=== PATIENT | female | born 1985 | race Caucasian/White ===

== ENCOUNTER 2018-10-15 21:52 | Emergency (ER) | payer OTHER, SELFPAY ==
[2018-10-15 22:01] VITALS: BP 134/85; PULSE 64; RESP 16; TEMP 37.1; O2SAT 100
--- NOTE | 2018-10-15 22:20 | W.ED.GENAD ---
Discharge Plan Disposition Patient Disposition: HOME Condition: Good Discharge Details Chief Complaint: Orthopedic Clinical Impression: Closed fracture of left thumb Primary Care Provider: Mary,Local ED Provider: Gerard Lyman Meds and New Rx's Prescriptions: Continued naltrexone 50 mg Tablet RF: 0 mirtazapine 15 mg Tablet RF: 0 sertraline 50 mg Tablet RF: 0 Discharge Instructions Additional Instructions: Please use ibuprofen and ice over the next few days to help with pain and swelling. Keep your hand elevated. Leave the splint on to keep the thumb immobilized. Call your primary for follow-up in 2 weeks. Return to ED for any concerns or problems. Referrals: Primary Care Provider [Outside] Medical Decision Making Patient with hematoma to the pad of her thumb. There is no subungual hematoma. There is a prior blister in the webspace at the base of her thumb from raking days ago. She has decreased range of motion because of the swelling. However the strength of the flexor and extensor tendons are intact. Doubt fracture but will obtain x-ray. Per my review there actually does appear to be a fracture line through the base of the distal phalanx. It is not intra-articular. It is not displaced or angulated. Patient is not comfortable in preformed aluminum splints. I felt that a soft thumb spica splint was probably a little bit overboard. She was comfortable in aluminum splint that I was able to manufacture. Patient instructed to use ice and ibuprofen. Leave the splint on until follow-up. Keep hand elevated to help with swelling. Call primary for follow up in two weeks. HPI General Mode of arrival: ambulatory. Date/Time Provider Initiated Documentation: 10/15/18 22:05. Limitations to Documentation: no limitations. Information obtained by: patient. HPI Narrative: Patient is right-hand dominant and presents with left thumb injury. She was pruning a tree with a telescoping lucio. Somehow the director enterprise sales fell and struck her thumb. She is not exactly sure how it all happened. She denies any other injury. She has taken Advil and used ice. Pain continues with swelling so she came in to be sure no fractures. Related Data Home Medications Medication Instructions Recorded Confirmed mirtazapine 10/15/18 naltrexone 10/15/18 sertraline 10/15/18 Allergies Allergy/AdvReac Type Severity Reaction Status Date / Time cefaclor [From [facility]] Allergy Verified 10/15/18 22:19 General Stated Complaint: Orthopedic CORBY: 4 Review of Systems Musculoskeletal Comments: left thumb pain Integumentary/Breasts Reports wounds (previous blister to the base of left thumb from raking) PFSH Social History Alcohol Intake: former Do you feel safe at home: Yes Do you feel safe in your relationship?: Yes Exam Extrem Left upper extremity: wrist Details: normal to inspection and normal ROM; no tenderness and no swelling and hand Details: tendon exam normal, tenderness Location: of the thumb (pad of thumb with hematoma, swelling, tenderness) and ecchymosis Course Vital Signs Temperature 98.8 F 10/15/18 22:01 Pulse 64 10/15/18 22:01 Respiratory Rate 16 10/15/18 22:01 Blood Pressure 134/85 10/15/18 22:01 Pulse Oximetry 100 10/15/18 22:01 Temperature 98.8 F 10/15/18 22:01 Temperature Source Tympanic 10/15/18 22:01 Pulse 64 10/15/18 22:01 Respiratory Rate 16 10/15/18 22:01 Respiratory Effort 10/15/18 22:08 Blood Pressure 134/85 10/15/18 22:01 Blood Pressure Position Sitting 10/15/18 22:01 Pulse Oximetry 100 10/15/18 22:01 Oxygen Delivery Method Room Air 10/15/18 22:01 Oxygen Flow Rate 0 10/15/18 22:01 Pain Level 2 10/15/18 22:01
--- NOTE | 2018-10-15 22:30 | ED.GENADUL_ITS ---
Discharge Plan Disposition Patient Disposition: HOME Condition: Good Discharge Details Chief Complaint: Orthopedic Clinical Impression: Closed fracture of left thumb Primary Care Provider: Mary,Local ED Provider: Gerard Lyman Meds and New Rx's Prescriptions: Continued naltrexone 50 mg Tablet RF: 0 mirtazapine 15 mg Tablet RF: 0 sertraline 50 mg Tablet RF: 0 Discharge Instructions Additional Instructions: Please use ibuprofen and ice over the next few days to help with pain and swelling. Keep your hand elevated. Leave the splint on to keep the thumb immobilized. Call your primary for follow-up in 2 weeks. Return to ED for any concerns or problems. Referrals: Primary Care Provider [Outside] Medical Decision Making Patient with hematoma to the pad of her thumb. There is no subungual hematoma. There is a prior blister in the webspace at the base of her thumb from raking days ago. She has decreased range of motion because of the swelling. However the strength of the flexor and extensor tendons are intact. Doubt fracture but will obtain x-ray. Per my review there actually does appear to be a fracture line through the base of the distal phalanx. It is not intra-articular. It is not displaced or an gulated. Patient is not comfortable in preformed aluminum splints. I felt that a soft thumb spica splint was probably a little bit overboard. She was comfortable in aluminum splint that I was able to manufacture. Patient instructed to use ice and ibuprofen. Leave the splint on until follow-up. Keep hand elevated to help with swelling. Call primary for follow up in two weeks. HPI General Mode of arrival: ambulatory . Date/Time Provider Initiated Documentation: 10/15/18 22:05 . Limitations to Documentation: no limitations . Information obtained by: patient . HPI Narrative: Patient is right-hand dominant and presents with left thumb injury. She was pruning a tree with a telescoping lucio. 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 She is not exactly sure how it all happened. She denies any other injury. She has taken Advil and used ice. Pain continues with swelling so she came in to be sure no fractures. Related Data Home Medications Medication Instructions Recorded Confirmed mirtazapine 10/15/18 naltrexone 10/15/18 sertraline 10/15/18 Allergies Allergy/AdvReac Type Severity Reaction Status Date / Time cefaclor [From [facility]] Allergy Verified 10/15/18 22:19 General Stated Complaint: Orthopedic CORBY: 4 Review of Systems Musculoskeletal Comments: left thumb pain Integumentary/Breasts Reports wounds (previous blister to the base of left thumb from raking) PFSH Social History Alcohol Intake: former Do you feel safe at home: Yes Do you feel safe in your relationship?: Yes Exam Extrem Left upper extremity: wrist Details: normal to inspection and normal ROM; no tenderness and no swelling and hand Details: tendon exam normal, tenderness Location: of the thumb (pad of thumb with hematoma, swelling, tenderness) and ecchymosis Course Vital Signs Temperature 98.8 F 10/15/18 22:01 Pulse 64 10/15/18 22:01 Respiratory Rate 16 10/15/18 22:01 Blood Pressure 134/85 10/15/18 22:01 Pulse Oximetry 100 10/15/18 22:01 Temperature 98.8 F 10/15/18 22:01 Temperature Source Tympanic 10/15/18 22:01 Pulse 64 10/15/18 22:01 Respiratory Rate 16 10/15/18 22:01 Respiratory Effort 10/15/18 22:08 Blood Pressure 134/85 10/15/18 22:01 Blood Pressure Position Sitting 10/15/18 22:01 Pulse Oximetry 100 10/15/18 22:01 Oxygen Delivery Method Room Air 10/15/18 22:01 Oxygen Flow Rate 0 10/15/18 22:01 Pain Level 2 10/15/18 22:01
--- NOTE | 2018-10-15 22:40 | DI.RAD_ITS ---
SYMPTOM/DIAGNOSIS: TRAUMA, PAIN LEFT THUMB: There is no evidence of a fracture or dislocation.
--- NOTE | 2018-10-15 22:51 | DI.VRAD_ITS ---
EXAM: XR Left Finger(s), 2 or More Views EXAM DATE/TIME: 10/15/2018 10:13 PM CLINICAL HISTORY: 32 years old, female; Injury or trauma; Injury history: Trimming a limb and caught tip of left thumb; Initial encounter; Blunt trauma (contusions or hematomas; Finger; Injury date: 10/15/18; Injury details: Pain at tip of thumb TECHNIQUE: Imaging protocol: XR Left finger minimum 2 views. COMPARISON: No relevant prior studies available. FINDINGS: Bones/joints: Normal. Soft tissues: Normal. IMPRESSION: No acute findings. Dictated and Authenticated by: Angel Alexander MD. Ordering:LANA Gee MD
[2018-10-15 23:08] VITALS: BP 134/85; PULSE 64; RESP 16; TEMP 37.1; O2SAT 100
--- NOTE | 2018-10-15 23:10 | NUR.NOTE ---
Nursing Note:MD placed splint. Discussed discharge instructions, OTC meds and follow up care with pt. Pt verbalized an understanding. Pt ambulated out the door with steady gait.
== END 2018-10-15 23:10 | disposition home or self-care (01) ==
PROVIDERS: Emergency Provider Emergency Medicine
DX: S62.525A Nondisplaced fracture of distal phalanx of left thumb, initial encounter for closed fracture (principal); W22.8XXA Striking against or struck by other objects, initial encounter
CPT/HCPCS: 26750; 73140

== ENCOUNTER 2022-05-24 14:08 | Emergency (ER) | payer OTHER, SELFPAY ==
[2022-05-24 14:15] VITALS: BP 149/87; PULSE 60; RESP 18; TEMP 36.9; O2SAT 96
--- NOTE | 2022-05-24 14:30 | DI.RAD_ITS ---
Exam(s) XR HAND LT COMPLETE EXAM: XR HAND LT COMPLETE CLINICAL HISTORY: thumb vs hammer. TECHNIQUE: 2D digital imaging was performed. COMPARISON: CR XR thumb LT from 10/15/2018 FINDINGS: 3 views No evidence of acute fracture nor dislocation. No radiopaque foreign body. No osseous lesions. No erosions. IMPRESSION: No significant osseous findings. DATA REPOSITORY: RADIATION DOSE DELIVERED:
--- NOTE | 2022-05-24 15:12 | ED.GENADUL_ITS ---
Discharge Plan Disposition Patient Disposition: Home Condition: Good Discharge Details Clinical Impression: Contusion of left thumb [facility]: Man Manuel Home Meds and New Rx's Prescriptions: No Action naltrexone 50 mg Tablet mirtazapine 15 mg Tablet 15 mg PO DAILY sertraline 50 mg Tablet 50 mg PO DAILY lamotrigine 200 mg Tablet 200 mg PO DAILY ibuprofen [Advil] 200 mg Tablet 400 mg PO Q6H PRN Discharge Instructions Instructions: Contusion in Adults (ED) Additional Instructions: At this time there is no evidence of fracture for your thumb. You may develop a subungual hematoma later. You will know this by worsening pain, throbbing sensation, and a blue bruise underneath your nail. If this occurs please return and we can release this. In the meantime take Tylenol and Motrin as needed for pain. If you notice any worsening of your symptoms, or any new symptoms such as vomiting, diarrhea, fever, chills, shortness of breath, chest pain, numbness, weakness, or fainting , please return immediately to the emergency department for reevaluation. Please follow up with your primary care provider as soon as possible for reassessment and reevaluation. As always, it was a pleasure participating in your medical care today. Medical Decision Making 36-year-old female who is right-hand dominant presents today for striking her left thumb with a hammer. She came to the ER to evaluate for fracture. She had broken the thumb before and was concerned this might have occurred again. Pain has improved since being in the emergency department. She denies any numbness or tingling. She denies any weakness. No other complaints at this time. Evaluation of the patient's thumb demonstrates no evidence of subungual hematoma or significant tenderness. X-ray shows no evidence of fracture. Patient feels well. No disruption for neurovascular or ligamentous exam. Patient does not want brace. Patient will be discharged home. Recommend NSAIDs at home. Discussed red flags which return. I have extensively reviewed the treatment plan and discharge instructions with the patient. I have a ddressed all patient concerns at this time. The patient was made aware of what symptoms to monitor for that would warrant a return to the emergency department. Discussed the plan with the patient, they demonstrate verbal understanding and agreement with our assessment and plan at this time. The documentation in this chart was dictated using [employer] dictation software. Please excuse any dictation errors. FINDINGS: 3 views No evidence of acute fracture nor dislocation. No radiopaque foreign body. No osseous lesions. No erosions. IMPRESSION: No significant osseous findings. Sign Out No HPI General Date/Time Provider Initiated Documentation: 05/24/22 14:33 . HPI Narrative: 36-year-old female who is right-hand dominant presents today for striking her left thumb with a hammer. She came to the ER to evaluate for fracture. She had broken the thumb before and was concerned this might have occurred again. Pain has improved since being in the emergency department. She denies any numbness or tingling. She denies any weakness. No other complaints at this time. Related Data Home Medications Medication Instructions Recorded Confirmed mirtazapine 15 mg tablet 15 mg PO DAILY 10/15/18 05/24/22 naltrexone 50 mg tablet 10/15/18 sertraline 50 mg tablet 50 mg PO DAILY 10/15/18 05/24/22 ibuprofen 200 mg tablet (Advil) 400 mg PO Q6H PRN 05/24/22 05/24/22 lamotrigine 200 mg tablet 200 mg PO DAILY 05/24/22 05/24/22 Allergies Allergy/AdvReac Type Severity Reaction Status Date / Time cefaclor [From [facility]] Allergy Verified 05/24/22 14:19 General Stated Complaint: Orthopedic CORBY: 4 Review of Systems All systems reviewed & are unremarkable except as noted in HPI and below PFSH All Active Problems Contusion of left thumb (Acute) Social History Smoking/Tobacco Use Status: Never Smoking risk assessment performed?: Yes Alcohol Intake: former Drug use: Daily Substance use type: marijuana Do you feel safe at home: Yes Do you feel safe in your relationship?: Yes Exam Narrative Exam Narrative: 1.Const: Well-nourished, Well-developed, appearing stated age 2.Eyes: PERRL, no conjunctival injection, and symmetrical lids. 3.ENT: Atraumatic external nose and ears. Moist MM. Neck: Symmetric, trachea midline, No thyromegaly. 4.CVS: +S1/S2, No murmurs or gallops. Peripheral pulses 2+ and equal in all extremities. Brisk capillary refill in all extremities. 5.RESP: Unlabored respiratory effort. Clear to auscultation bilaterally. No wheezes rales or rhonchi 6.GI: Soft, Nontender/Nondistended, No hepatosplenomegaly. No guarding or rebound. 7.MSK: Normocephalic, mild tenderness over the distal tip of the left thumb. No subungual hematoma. Excellent flexion extension. Normal less than 3-second capillary refill. Normal movement. No swelling. No deformity. Patient did have nail burundian on however you were able to see that there was no evidence of subungual hematoma. 8.Skin: Warm, Dry. No rashes or lesions. 9.Neuro: barrow worker II-XII grossly intact. Sensation grossly intact, no focal neurologic deficits. 10.Psych: (AAO) x3. Appropriate mood and affect Course Vital Signs Vital signs: Vital Signs Temperature 36.9 C 05/24/22 14:15 Pulse 60 05/24/22 14:15 Respiratory Rate 18 05/24/22 14:15 Blood Pressure 149/87 H 05/24/22 14:15 Pulse Oximetry 96 05/24/22 14:15 Temperature 36.9 C 05/24/22 14:15 Temperature Source Temporal Artery Scan 05/24/22 14:15 Pulse 60 05/24/22 14:15 Respiratory Rate 18 05/24/22 14:15 Respiratory Effort Non-Labored 05/24/22 14:17 Blood Pressure 149/87 H 05/24/22 14:15 Blood Pressure Position Sitting 05/24/22 14:15 Pulse Oximetry 96 05/24/22 14:15 Oxygen Delivery Method Room Air 05/24/22 14:15 Oxygen Flow Rate 0 05/24/22 14:15 Pain Level 5 05/24/22 14:19
== END 2022-05-24 15:16 | disposition home or self-care (01) ==
PROVIDERS: Emergency Provider Student in an Organized Health Care Education/Training Program
DX: S67.02XA Crushing injury of left thumb, initial encounter (principal); W27.8XXA Contact with other nonpowered hand tool, initial encounter
CPT/HCPCS: 99283; 73130